=== PATIENT | male | born 1980 | race American Indian/Alaskan Native ===

== ENCOUNTER 2020-06-27 09:38 | Outpatient (CLI) | payer OTHER ==
[2020-06-27 11:05] LABS: Hematocrit 46.5 % (35.5-45.6); Hemoglobin 15.8 gm/dl (11.8-15.2); Mean Corpuscular HGB Conc 34 % (32-34); Mean Corpuscular Volume 90 fl (84-94); Platelet Count 190 K/mm3 (140-440); Red Blood Count 5.15 M/mm3 (3.65-5.03); Red Cell Distribution Width 13.4 % (13.2-15.2)
[2020-06-27 11:25] LABS: ABG Base Excess -0.5 mmol/L (-2.0-3.0); ABG HCO3 24.3 mmol/L (20.0-26.0); ABG Methemoglobin 0.6 % (0.0-1.5); ABG Oxygen Saturation 97.1 % (95.0-99.0); ABG PCO2 40.4 mm Hg; ABG PH 7.397 pH Units (7.350-7.450); ABG PO2 91.4 mm Hg (80.0-90.0)
[2020-06-27 11:39] LABS: Alanine Aminotransferase 10 units/L (7-56); Albumin 4.7 g/dL (3.9-5); BUN/Creatinine Ratio 13; Blood Urea Nitrogen 12 mg/dL (9-20); Calcium 9.7 mg/dL (8.4-10.2); HDL Cholesterol 55 mg/dL (40-59); Hemolysis Index 16; LDL Cholesterol,Direct 119 mg/dL (50-130)
== END 2020-06-27 09:39 | disposition home or self-care (01) ==
LOC: PF 09:38
PROVIDERS: ATTEND Internal Medicine
DX: J30.9 Allergic rhinitis, unspecified (principal); R06.02 Shortness of breath
CPT/HCPCS: 36415; 36600; 80053; 80061; 82785; 82803; 84436; 84443; 85027